=== PATIENT | female | born 1955 | race Caucasian/White ===

== ENCOUNTER 2016-09-09 04:47 | Inpatient (IN) ==
[2016-09-09] MEDS ORDERED: ceFAZolin 1 GM VIAL IV SCH (05:00)
[2016-09-09] MEDS ORDERED: GABAPENTIN 100 MG CAPSULE PO SCH ×3 (05:00→21:00)
[2016-09-09] MEDS ORDERED: oxyCODONE 10 MG TAB.ER.12H PO SCH (05:00)
[2016-09-09] MEDS ORDERED: CELECOXIB 200 MG CAPSULE PO SCH (05:00)
[2016-09-09] MEDS ORDERED: SCOPOLAMINE 1 PATCH PATCH TOPICAL ONE (05:55)
[2016-09-09] MEDS ORDERED: SCOPOLAMINE 1 PATCH PATCH ONE (06:10)
[2016-09-09] MEDS ORDERED: KETOROLAC 30 MG, ROPIVACAINE HCL/PF 49.5 ML, EPINEPHrine 0.5 MG, 0.9 % SODIUM CHLORIDE ... IJ SCH (06:30)
[2016-09-09] MEDS ORDERED: MIDAZOLAM 5 MG/5 ML VIAL IV ONE (07:40)
[2016-09-09] MEDS ORDERED: PROMETHAZINE 25 MG/ML VIAL IV ONE (07:40)
[2016-09-09] MEDS ORDERED: ePHEDrine 50 MG/ML AMPUL IV ONE (07:40)
[2016-09-09] MEDS ORDERED: ONDANSETRON 4 MG/2 ML VIAL IV ONE (07:40)
[2016-09-09] MEDS ORDERED: DEXAMETHASONE 10 MG/ML VIAL IV ONE (07:40)
[2016-09-09] MEDS ORDERED: ROPIVACAINE HCL/PF 30 ML VIAL IJ ONE (07:40)
[2016-09-09] MEDS ORDERED: PROPOFOL 200 MG/20 ML VIAL IV ONE (07:40)
[2016-09-09] MEDS ORDERED: LIDOCAINE HCL/PF 100 MG/5 ML SYRINGE IV ONE (07:40)
[2016-09-09] MEDS ORDERED: TRANEXAMIC ACID 1,000 MG/10 ML VIAL IV ONE ×2 (07:40→09:30)
[2016-09-09] MEDS ORDERED: PHENYLEPHRINE 10 MG/ML VIAL IV ONE (07:40)
[2016-09-09] MEDS ORDERED: ATROPINE SULFATE 0.4 MG/ML VIAL IV PRN (08:46)
[2016-09-09] MEDS ORDERED: PROMETHAZINE 25 MG/ML VIAL IV PRN (08:46)
[2016-09-09] MEDS ORDERED: diphenhydrAMINE 50 MG/ML VIAL IV PRN (08:46)
[2016-09-09] MEDS ORDERED: HYDROmorphone 2 MG/ML SYRINGE IV PRN ×2 (08:46→09:30)
[2016-09-09] MEDS ORDERED: METOPROLOL TARTRATE 5 MG/5 ML VIAL IV PRN (08:46)
[2016-09-09] MEDS ORDERED: METHOCARBAMOL 1,000 MG/10 ML VIAL IV PRN (08:46)
[2016-09-09] MEDS ORDERED: ePHEDrine 50 MG/ML AMPUL IV PRN (08:46)
[2016-09-09] MEDS ORDERED: FLUMAZENIL 0.1 MG/ML ML IV PRN (08:46)
[2016-09-09] MEDS ORDERED: BENZOCAINE/MENTHOL 1 LOZENGE PO PRN ×2 (08:46→09:30)
[2016-09-09] MEDS ORDERED: IPRATROPIUM/ALBUTEROL 3 ML AMPUL.NEB NEB PRN (08:46)
[2016-09-09] MEDS ORDERED: NALOXONE HCL 0.4 MG/ML VIAL IV PRN (08:46)
[2016-09-09] MEDS ORDERED: ONDANSETRON 4 MG/2 ML VIAL IV PRN ×2 (08:46→09:30)
[2016-09-09] MEDS ORDERED: LACTATED RINGERS 1,000 ML IV SCH (09:00)
[2016-09-09] MEDS ORDERED: POLYETHYLENE GLYCOL 3350 17 GM PACKET PO PRN (09:30)
[2016-09-09] MEDS ORDERED: FLEETS ADULT ENEMA PR PRN (09:30)
[2016-09-09] MEDS ORDERED: BISACODYL 10 MG SUPP.RECT PR PRN (09:30)
[2016-09-09] MEDS ORDERED: MAGNESIUM HYDROXIDE 30 ML ORAL.SUSP PO PRN (09:30)
[2016-09-09] MEDS ORDERED: DEXTROSE 50% 50 ML VIAL IV PRN (09:35)
--- NOTE | 2016-09-09 09:37 | Brief Operative Note ---
Date of procedure: 09/09/16 Pre-op diagnosis: Left knee severe DJD Post-op diagnosis: same Procedure: Left TKA Grafts/Implants: Yes (Pankaj CR 1 femur, 1 tibia, 11 insert, 29 patella) Anesthesia: spinal, GLMA Findings: above Complications: none Surgeon: Jose Marcos Therapist Speech: Tien Guillermo Estimated blood loss (cc): 30 Specimens Removed/Pathology: none sent Condition: stable Disposition: PACU
--- NOTE | 2016-09-09 10:29 | XRay Report ---
CLINICAL INFORMATION: Postsurgical follow-up TECHNIQUE: AP, lateral, patellar views COMPARISON: None. FINDINGS: Status post left total knee arthroplasty. Femoral and tibial complements are in anatomic positions. There is soft tissue and intra-articular gas. There are skin tre anteriorly. IMPRESSION: Left total knee arthroplasty Interpreted and Authenticated by: Fadi Mendoza 09/09/16
[2016-09-09] MEDS: fentaNYL 100 MCG/2 ML VIAL IV PRN ×2 (10:30→10:35)
--- NOTE | 2016-09-09 10:38 | Operative Note ---
DATE OF OPERATION: 09/09/2016 PREOPERATIVE DIAGNOSIS: Left knee severe degenerative joint disease. POSTOPERATIVE DIAGNOSIS: Left knee severe degenerative joint disease. PROCEDURE PERFORMED: Left total knee arthroplasty using a Pankaj Triathlon size 1 cruciate retaining femoral component, size 1 tibial baseplate, an 11 mm X3 tibial insert with a 29 mm patellar button. SURGEON: Jose Marcos MD. PULLER OUT: Bill Guillermo PA-C. ANESTHESIA: Spinal plus general. DRAINS: None. SPECIMENS: Bone cuts, which were discarded. BLOOD LOSS: 30 mL COMPLICATIONS: None. POSTOPERATIVE CONDITION: Stable. INDICATIONS FOR SURGERY: This is a 61-year-old female who has had longstanding worsening left knee pain and radiographs showed severe multi-compartment osteoarthritis. She does have a history of a right total knee arthroplasty done by me. FINDINGS AT SURGERY: She did have tricompartmental osteoarthritis. Post implantation showed good overall limb alignment, stability, and patellar tracking. PROCEDURE IN DETAIL: The patient had been seen preoperatively. Informed consent had been obtained after discussion of risks and benefits of surgery. Risks including, but not limited to, bleeding, possibly requiring transfusion; infection, possibly requiring implant removal and prolonged IV antibiotics; injury to nerves, blood vessels, and other surrounding structures; anesthetic risks; incomplete or no resolution of symptoms; stiffness, pain; instability; swelling, DVT and pulmonary embolus risks; the possibility of needing further surgery. She understood and wished to proceed. Correct operative site was marked and the patient was taken to the operating room after spinal anesthesia was given. LMA general was done and then the left lower extremity was carefully prepped and draped in normal sterile fashion and a time-out was performed verifying patient name, operative site, and plan. Esmarch was used to exsanguinate the extremity and tourniquet was inflated to 300 mmHg. Midline incision was made with a scalpel through skin and subcutaneous tissue. IrriSept was irrigated and then a medial parapatellar arthrotomy made. Subperiosteal exposure was done of the anterior medial tibia and the distal anterior cortex of the femur. The retropatellar fat pad was excised. ACL was transected and then the anterior horns of the menisci removed. We then made a drill hole in the distal femur and the flexible IM argelia was passed. We pinned a distal cutting block with a 5-degree valgus cut angle and an 8 [address] in [address]. We went ahead and made our distal femoral cut. We verified this was flat with a cut block and depth of resection appeared appropriate. We then used a sizer block pinned into place and this sized to a size 1. We went ahead and drilled our holes and placed a size 2 4-in-[address] and made our anterior cut. This was clearly going to be too proud so we went ahead and removed this and placed a size 1 4-in-1 block. We made our anterior cut, which was flush with the anterior cortex. We did use 5 degrees of external rotation to match her anatomy. We then finished off our posterior and chamfer cuts. The tibia was subluxed forward and the posterior horns of the menisci were removed. A drill hole was made in the proximal tibia and IM argelia passed down. We stylused two off the medial side and pinned our block in place. We made our tibial cut with the saw blade coming just below the medial defect. We measured our tibial resection and it did measure 2 off the medial and 8 off the lateral. We went ahead and sized this to 1, which was externally rotated as much as bone coverage would allow and then pinned into place. We used the keel punch and then a keel size 1 tibial baseplate trial was impacted. The femur was elevated and posterior osteophytes removed with a curved osteotome and curet. We then impacted our size 1 femoral component placing this flush with the lateral cortex and then went ahead and placed a size 11 tibial insert. The knee was taken into full extension. The patella was measured. Preresection it was only 16 mm thick. We went ahead and did a freehand resection of 8 mm bringing this down to 8 mm. We medialized this maximally and a size 29 fit best. We went ahead and drilled our peg holes and placed a 29 trial. We measured our thickness with the trial in place. It was restored to 16. We went ahead and made a lateral facetectomy and then checked our patellar tracking, which was good. We went ahead and opened implants. IrriSept was irrigated, after a minute we then copiously pulse lavaged with saline and then CO2 gun was used to clean and dried the cancellous cut bone surfaces. We cemented the tibia, removed excess cement and followed by the femur and removed excess cement, 11 trial insert was placed. The knee was taken into extension and the patellar button was cemented. We irrigated with IrriSept again, after minute we pulse lavaged copiously with saline and then injected our pain cocktail in the pericapsular tissues and subcutaneous. Once cement had fully hardened, we flexed the knee up, removed the trial insert and injected the remainder of the pain cocktail in the posteromedial capsule. We then opened the definitive insert and impacted this carefully verifying it was fully seated. We then placed the knee in about 30 degrees of flexion and then interrupted [id number], #2 FiberWires were used at the superior medial corner of the patella incision and then #1 Vicryl [id number] were used around the rest patella and running #1 Vicryl was used for patellar tendon and quad tendon. Final IrriSept irrigation was done, after a minute pulse lavaged again and then 2-0 Monocryl was used for subcutaneous and tre for skin. Xeroform and sterile dressing were applied. Tourniquet was released. The patient was awakened, extubated, and transferred to recovery in stable condition. ALFREDITO:ashley Job ID: [id number] Doc ID: [id number] Jose Marcos MD
[2016-09-09] MEDS: 0.9 % SODIUM CHLORIDE 1,000 ML IV SCH ×2 (12:00→23:10)
[2016-09-09] MEDS: KETOROLAC 30 MG/ML VIAL IV SCH ×3 (12:27→23:45)
[2016-09-09] MEDS: metFORMIN 500 MG TABLET PO SCH ×3 (12:28→23:11)
[2016-09-09] MEDS: POTASSIUM CHLORIDE 10 MEQ TABLET PO SCH ×2 (12:28→17:09)
[2016-09-09] MEDS: TRIAMTERENE/HYDROCHLOROTHIAZID 1 TABLET PO SCH (12:29)
[2016-09-09] MEDS: 0.9 % SODIUM CHLORIDE 10 ML SYRINGE IV SCH ×2 (12:29→23:13)
[2016-09-09] MEDS: oxyCODONE/APAP 5/325MG TABLET PO PRN ×2 (12:37→23:10)
[2016-09-09] MEDS: INSULIN LISPRO 1 UNIT/0.01 ML UNIT SQ SCH ×3 (13:04→23:46)
[2016-09-09] MEDS: ceFAZolin 1 GM VIAL IV SCH ×2 (15:54→23:10)
[2016-09-09] MEDS: glipiZIDE 5 MG TAB.XL.24H PO SCH (17:09)
[2016-09-09] MEDS ORDERED: SENNOSIDES 1 TABLET PO SCH (21:00)
[2016-09-09] MEDS ORDERED: SIMVASTATIN 10 MG TABLET PO SCH (21:00)
[2016-09-09] MEDS: DOCUSATE SODIUM 100 MG CAPSULE PO SCH (23:11)
[2016-09-09] MEDS: ASPIRIN 325 MG ENTERIC COATED TABLET PO SCH (23:12)
[2016-09-10] MEDS: KETOROLAC 30 MG/ML VIAL IV SCH ×2 (04:40→12:16)
[2016-09-10] MEDS: oxyCODONE/APAP 5/325MG TABLET PO PRN ×3 (04:40→15:14)
[2016-09-10] MEDS: 0.9 % SODIUM CHLORIDE 10 ML SYRINGE IV SCH (04:40)
[2016-09-10] MEDS: 0.9 % SODIUM CHLORIDE 1,000 ML IV SCH (05:45)
[2016-09-10] MEDS: POTASSIUM CHLORIDE 10 MEQ TABLET PO SCH ×2 (07:27→12:25)
[2016-09-10] MEDS: glipiZIDE 5 MG TAB.XL.24H PO SCH (07:28)
[2016-09-10] MEDS: metFORMIN 500 MG TABLET PO SCH ×2 (07:28→12:25)
[2016-09-10] MEDS: INSULIN LISPRO 1 UNIT/0.01 ML UNIT SQ SCH ×2 (07:32→12:24)
--- NOTE | 2016-09-10 07:44 | Discharge Summary ---
[id number] from initiated Date: [] Patient: Harriet Farmer 61 y/o F admitted on 09/09/16 for Left Total Knee Arthroplasty *!systems analysis manager!*. Chief Complaint: [] Discharge date: 09/10/16 Hospitalization Hospital course: Pt was admitted for a TKA. she underwent the procedure and was then transferred to the floor for iv pain meds, iv abx, and PT. she spent one night on the floor prior to being discharged to home. Discharge diagnosis: L knee osteoarthrosis Exam - Exam Clean and dry: Yes Weight bearing status: as tolerated Ortho Discharge - TKA - Patient Instructions Diet: Regular Diet Activity: activity as tolerated Total Knee Protocol: For Total Knee: Start ROM GRACIE with stationary bike or rocking chair. Work on gaining full extension of knee. Posterior dislocation precautions provided. Hip abductor strengthening and gait training instructions provided. Apply Cryocuff as instructed. Dressing Care: May shower in 2 days - Follow Up Plan Disposition: Home, Self-Care Prognosis: Good Rehab Potential: Good Overall status at discharge: patient is progressing back to baseline - Orders For Discharge Prescriptions: Aspirin [Ecotrin] 325 mg PO BID #60 tab.ec oxyCODONE/APAP [Percocet 5-325 mg] 1 - 2 tab PO Q4HP PRN #90 tablet PRN Reason: Pain Additional Discharge Orders: Physical Therapy at Discharge - TKA Location: Determined By Patient Walker Location: Determined By Patient Pending Studies Resuscitation Status Full Code Diet Consistent Carbohydrate Diet Start WedSep 09 Lunch Aspirin (Ecotrin) 325 mg PO BID [facility] Last Admin: 09/09/16 23:12 Dose: 325 mg Diagnostic Test (Pha) (Accu-Chek) 1 each FS ACHS [facility] Last Admin: 09/10/16 07:31 Dose: 1 each Admin: 09/09/16 23:31 Dose: 1 each Admin: 09/09/16 17:09 Dose: 1 each Admin: 09/09/16 12:58 Dose: 1 each Docusate Sodium (Colace) 100 mg PO BID [facility] Last Admin: 09/09/16 23:11 Dose: 100 mg Gabapentin (Neurontin) 100 mg PO HS [facility] Last Admin: 09/09/16 23:12 Dose: 100 mg Gabapentin (Neurontin) 200 mg PO DAILY@1700 [facility] Last Admin: 09/09/16 17:09 Dose: 200 mg Glipizide (Glucotrol Xl) 5 mg PO BIDAC [facility] Last Admin: 09/10/16 07:28 Dose: 5 mg Admin: 09/09/16 17:09 Dose: 5 mg Sodium Chloride (Sodium Chloride 0.9%) 1,000 mls @ 100 mls/hr IV .Q10H [facility] Last Admin: 09/10/16 05:45 Dose: Admin: 09/09/16 23:10 Dose: Infusion: 09/09/16 19:10 Dose: 0 mls/hr Admin: 09/09/16 12:00 Dose: 100 mls/hr Insulin Human Lispro (Humalog) 0 unit SQ ACHS [facility] PRN Reason: Protocol Last Admin: 09/10/16 07:32 Dose: Not Given Admin: 09/09/16 23:46 Dose: 8 unit Admin: 09/09/16 17:10 Dose: Not Given Admin: 09/09/16 13:04 Dose: 6 unit Ketorolac Tromethamine (Toradol) 30 mg IV Q6 [facility] Stop: 09/11/16 06:01 Last Admin: 09/10/16 04:40 Dose: Not Given Admin: 09/09/16 23:45 Dose: 30 mg Admin: 09/09/16 18:33 Dose: 30 mg Admin: 09/09/16 12:27 Dose: 30 mg Metformin HCl (Glucophage) 500 mg PO CCHS [facility] Last Admin: 09/10/16 07:28 Dose: 500 mg Admin: 09/09/16 23:11 Dose: 500 mg Admin: 09/09/16 17:09 Dose: 500 mg Admin: 09/09/16 12:28 Dose: 500 mg Oxycodone/Acetaminophen (Percocet 5-325 Mg) 0 tab PO Q4HP PRN PRN Reason: Pain Last Admin: 09/10/16 04:40 Dose: 2 tab Admin: 09/09/16 23:10 Dose: 1 tab Admin: 09/09/16 12:37 Dose: 2 tab Potassium Chloride (Kdur) 10 meq PO TIDCC [facility] Last Admin: 09/10/16 07:27 Dose: 10 meq Admin: 09/09/16 17:09 Dose: 10 meq Admin: 09/09/16 12:28 Dose: 10 meq Senna (Senokot) 2 tab PO HS [facility] Last Admin: 09/09/16 23:10 Dose: 2 tab Simvastatin (Zocor) 5 mg PO HS [facility] Last Admin: 09/09/16 23:11 Dose: 5 mg Sodium Chloride (Saline Flush) 10 ml IV Q8 [facility] Last Admin: 09/10/16 04:40 Dose: 10 ml Admin: 09/09/16 23:13 Dose: 10 ml Admin: 09/09/16 12:29 Dose: Not Given Triamterene/HCTZ (Maxzide 25) 2 tab PO DAILY@1200 [facility] Last Admin: 09/09/16 12:29 Dose: Not Given Shift Summary 09/10/16 04:54 Shift Summary by Maryjane Cardenas Addendum entered by Maryjane Cardenas RN 09/10/16 04:58: BG was 267 at 2300, covered with 8 units. Original Note: Pt A&O, up with SBA and FWW in room. IV to left arm SL. Was up walking the halls with minimal pain before bed. Voiding adequate amounts of urine. Increase in pain this morning, medicated with 2 Percocets. Pt refused Toradol this AM, the previous doses were causing too much pain to IV site and she thought she could do without. Hoping to DC today. Initialized on 09/10/16 04:54 - END OF NOTE
[2016-09-10] MEDS ORDERED: FUROSEMIDE 20 MG TABLET PO SCH (09:00)
[2016-09-10] MEDS ORDERED: MULTIVIT,THER IRON,CA,FA & MIN 1 TABLET PO SCH (09:00)
[2016-09-10] MEDS: DOCUSATE SODIUM 100 MG CAPSULE PO SCH (09:15)
[2016-09-10] MEDS: ASPIRIN 325 MG ENTERIC COATED TABLET PO SCH (09:15)
[2016-09-10] MEDS: TRIAMTERENE/HYDROCHLOROTHIAZID 1 TABLET PO SCH (12:25)
== END 2016-09-10 16:15 | disposition home or self-care (01) | DRG 470 ==
LOC: MEDSUR 04:47 → MERGE 04:47
PROVIDERS: ADMIT Orthopaedic Surgery; ATTEND Orthopaedic Surgery